=== PATIENT | male | born 1995 | race Caucasian/White ===

== ENCOUNTER 2024-04-10 19:41 | Emergency (ER) | payer MEDICAID ==
[~2024-04-10] VITALS: Ht 177.8 cm; Wt 72.6 kg
[2024-04-10] MEDS ORDERED: KETOROLAC 30MG/ML VIAL IM STA (20:07)
[2024-04-10] MEDS ORDERED: DEXAMETHASONE 10 MG/ML VIAL IM ONE (20:15)
[2024-04-10] MEDS: PENICILLIN G BENZATHINE 1,200,000 UNITS/2ML SYR IM ONE (22:19)
[2024-04-10] MEDS: KETOROLAC 30MG/ML VIAL IM NR (22:28)
[2024-04-10] MEDS: DEXAMETHASONE 10 MG/ML VIAL IM NR (22:28)
[2024-04-10] MEDS ORDERED: AMOX1TAB16 MT (22:36)
[2024-04-10] MEDS ORDERED: NAPR-681 MT (22:36)
[2024-04-10 23:06] VITALS: BP 137/57; PULSE 62; RESP 20; TEMP 36.89184; O2SAT 100
== END 2024-04-10 23:10 | disposition home or self-care (01) ==
LOC: ER 19:41
DX: J03.90 Acute tonsillitis, unspecified (principal)
CPT/HCPCS: 87430; 87070; 96372; 99284; J1100; J1885; J0561; Z7610

== ENCOUNTER 2025-01-09 00:15 | Emergency (ER) | payer MEDICAID ==
[~2025-01-09] VITALS: Ht 170.2 cm; Wt 91.0 kg
[~2025-01-09 00:15] MED LIST: AMOX1TAB16 MT; NAPR-681 MT
[2025-01-09 00:22] VITALS: O2SAT 99
[2025-01-09 00:24] VITALS: BP 124/66; PULSE 65; RESP 18; TEMP 36.7; O2SAT 97
== END 2025-01-09 00:52 | disposition home or self-care (01) ==
LOC: ER 00:15
DX: N64.4 Mastodynia (principal)
CPT/HCPCS: 99281